=== PATIENT | female | born 1935 | race Caucasian/White ===

== ENCOUNTER 2024-01-12 16:35 | Observation (INO) | payer MEDICARE, MEDICAID, SELFPAY ==
[2024-01-12] VITALS (8 sets, daily range): BP systolic 126–165; BP diastolic 66–92; PULSE 68–82; RESP 14–18; TEMP 36.2–36.6; O2SAT 93–96; BMI 32.3; BMI 32.4
--- NOTE | 2024-01-12 17:42 | EKG12_ITS ---
Test Reason : Blood Pressure : / mmHG Vent. Rate : 071 BPM Atrial Rate : 071 BPM P-R Int : 224 ms QRS Dur : 082 ms QT Int : 402 ms P-R-T Axes : 068 046 006 degrees QTc Int : 436 ms Atrial-paced rhythm with prolonged AV conduction Nonspecific T wave abnormality Abnormal ECG Confirmed by Isaac Espinal ([id number]), advertising editor FARIDA DOUGHERTY ([id number]) on 01/14/2024 2:06:38 PM Referred By: Confirmed By:Isaac Espinal
--- NOTE | 2024-01-12 17:43 | CT_ITS ---
STUDY: CT ABDOMEN AND PELVIS WITHOUT CONTRAST REASON FOR EXAM: Female, 88 years old. Pain RADIATION DOSAGE (If Supplied By Facility): CTDIvol = ( 14.79 ) mGy, DLP = ( 679.78 ) mGycm TECHNIQUE: Transaxial images were obtained from the dome of the diaphragm to the symphysis pubis without oral contrast, and without intravenous contrast. Sagittal and coronal images were reconstructed. Individualized dose optimization techniques were used for this CT. COMPARISON: None. FINDINGS: 4 mm noncalcified nodule in the right lower lobe lungs on image 19 and follow-up CT the chest is recommended in 12 months document stability. Cardiomegaly. Normal liver. The gallbladder is contracted. Normal spleen. Normal pancreas. Normal bilateral adrenal glands. Nonrotated right kidney which is a normal variant. Normal left kidney. Normal visualized stomach. Normal small intestine. There are multiple colonic diverticula consistent with diverticulosis. There is non-visualization of the appendix. There is diffuse atherosclerotic calcification of the abdominal aorta, without a demonstrated aneurysm. Normal inferior vena cava. Normal retroperitoneum. Normal urinary bladder. There is a small umbilical hernia containing fat. There are diffuse degenerative changes of the visualized lumbar spine. CT/Abdomen/Pelvis without Cont IMPRESSION: 1. 4 mm noncalcified right lower lobe nodule and follow-up CT is recommended in 12 months document stability. 2. Cardiomegaly. 3. No renal or ureteral stone. 4. Sigmoid diverticulosis without diverticulitis. Electronically Signed: Raul Delgadillo MD at 20:32 EDT ,
--- NOTE | 2024-01-12 18:37 | EDS_ITS ---
HPI HPI - GI History of Present Illness Chief Complaint: Diarrhea Informant: patient Narrative Narrative: Patient is an 88-year-old female with history of hypertension, atrial fibrillation (on Coumadin), sick sinus syndrome status post pacemaker placement, GERD and possibly remote history of C. difficile presenting for chills and diarrhea. She states she had been feeling constipated until she started having diarrhea 2 days ago. She states she has had at least 4 episodes of diarrhea today. She has been having alternating chills and feeling hot. She has diffuse cramping abdominal pain. She also notes her rectum is burning. She has nausea but no vomiting reported. Denies any recent antibiotics, sick contacts or eating any suspicious foods. Denies associated chest pain or difficulty breathing. Came in for further evaluation. Notes that she did take Pepto- Bismol yesterday and since then her stools have been darker. Denies any rj black or blood in her stool however. [facility] Medical History Abdominal aortic aneurysm (AAA) without rupture Anxiety Appetite loss Arthritis Atherosclerotic heart disease of [place] coronary artery without angina pectoris (01/23/21) Atrial fibrillation Bone spur of left foot Chronic pain Closed head injury COPD (chronic obstructive pulmonary disease) COPD with acute exacerbation Coronary artery disease CVA (cerebral vascular accident) Dementia Depression Depression Dizziness Dysarthria due to acute cerebellar cerebrovascular accident (CVA) Edema Essential hypertension Expressive aphasia Fall Former smoker Frequent UTI ELVIN (generalized anxiety disorder) Gastroesophageal reflux disease GERD (gastroesophageal reflux disease) Goiter History of left heart catheterization (LHC) (~01/23/21) History of pacemaker History of TIAs Hyperlipidemia Hypertension Hypertension Hypertrophic cardiomyopathy Hypokalemia Insomnia Mixed hyperlipidemia Muscle spasm Pacemaker Paroxysmal atrial fibrillation Paroxysmal supraventricular tachycardia Presence of cardiac pacemaker Presence of permanent cardiac pacemaker (~11/22/13) SSS (sick sinus syndrome) Stroke Thyroid disorder Vascular dementia, uncomplicated Vitamin D deficiency Vitamin D deficiency Home Medications ergocalciferol (vitamin D2) 1,250 mcg (50,000 unit) capsule 50,000 unit PO DC SUPPLEMENT 06/23/19 [History Last Taken 06/20/23] metoprolol succinate 100 mg tablet,extended release 24 hr 100 mg PO BID blood pressure 06/23/19 [History Last Taken 06/22/23] omeprazole 40 mg capsule,delayed release 40 mg PO DAILY GERD 06/23/19 [History Last Taken 06/25/23 08:25] mirtazapine 30 mg tablet 30 mg PO QHS MOOD 01/21/21 [History Last Taken ] rosuvastatin 10 mg tablet 10 mg PO MOTH CHOLESTEROL 01/21/21 [History Last Taken 06/24/23] cyclobenzaprine 10 mg tablet 10 mg PO BID PRN Muscle Spasm 09/22/21 [History Last Taken 06/24/23 16:25] dicyclomine 20 mg tablet 20 mg PO BID PRN irritable bowels 04/27/22 [History Last Taken 05/11/22] fluticasone propionate 250 mcg/actuation blister powder for inhalation (Flovent Diskus) 1 inh inhalation BID PRN shortness of breath 05/04/22 [History Last Taken 06/24/23 17:30] nitroglycerin 0.4 mg sublingual tablet 0.4 mg sublingual Q5-15M PRN chest pain #25 tabs 04/16/23 [Rx Last Taken Unknown] hydralazine 50 mg tablet 50 mg PO TID blood pressure 06/22/23 [History Last Taken 06/22/23] zolpidem 10 mg tablet 10 mg PO DAILY INSOMNIA 2 days #2 tabs 06/25/23 [Rx Last Taken 06/24/23] spironolactone 25 mg tablet 25 mg PO DAILY #90 tabs 07/12/23 [Rx Last Taken Unknown] gabapentin 100 mg capsule 100 mg PO TID 09/18/23 [History Last Taken Unknown] alprazolam 0.5 mg tablet 0.5 mg PO BID #10 tabs 09/21/23 [Rx Last Taken Unknown] warfarin 6 mg tablet (Jantoven) 6 mg PO DINNER #0 tabs 09/21/23 [Rx Last Taken Unknown] acetaminophen 325 mg tablet 650 mg PO TID Pain 1-10 Or Fever 01/12/24 [History Last Taken Unknown] tramadol 50 mg tablet 50 mg PO Q12H PRN pain 01/12/24 [History Last Taken Unknown] Allergy/AdvReac Type Severity Reaction Status Date / Time amlodipine [From Norvasc] Allergy Unknown Verified 01/12/24 16:37 azithromycin [From Zithromax] Allergy Swelling Verified 01/12/24 16:37 candesartan Allergy Unknown Verified 01/12/24 16:37 [From Atacand HCT] ciprofloxacin Allergy Unknown Verified 01/12/24 16:37 codeine Allergy Unknown Verified 01/12/24 16:37 ezetimibe [From Zetia] Allergy Pain in Verified 01/12/24 16:37 joints hydrochlorothiazide Allergy Unknown Verified 01/12/24 16:37 Iodinated Contrast Media Allergy Hives Verified 01/12/24 16:37 [CONTRASTS] nitrofurantoin Allergy Rash Verified 01/12/24 16:37 [From Macrodantin] Penicillins [PCN] Allergy Hives Verified 01/12/24 16:37 procaine [From Novocain] Allergy Other Verified 01/12/24 16:37 ramipril [From Altace] Allergy Unknown Verified 01/12/24 16:37 [id number] Reductase Allergy Other Verified 01/12/24 16:37 Inhibitor [Zsiwuev-Dwx-Erz Reductase Inhibitor] Sulfa (Sulfonamide Allergy Unknown Verified 01/12/24 16:37 Antibiotics) Family History Aunt Diabetes Aunt Tuberculosis Brother CAD (coronary artery disease) Brother Cancer Prostate Surgical History H/O shoulder surgery H/O: hysterectomy History of appendectomy History of arthroplasty of right knee History of bilateral cataract extraction History of bladder suspension procedure History of hemorrhoidectomy History of lumpectomy of left breast History of permanent cardiac pacemaker placement History of tonsillectomy Status post left foot surgery Social History household members: family Smoking Status: Former smoker alcohol intake: never substance use type: does not use caffeine: Yes Type: coffee Number of servings: 1 ROS ROS ED Constitutional Constitutional ED: Reports chills and sweats; Denies fever(s) ENT ENT ED: Denies sore throat Cardiovascular Cardiovascular: Denies chest pain Respiratory/Chest Respiratory/Chest: Denies cough or dyspnea Gastrointestinal Gastrointestinal: Reports abdominal pain, diarrhea and nausea; Denies melena or vomiting Genitourinary Genitourinary ED: Denies dysuria or urinary frequency Musculoskeletal Musculoskeletal: Denies arthralgias or myalgias Integumentary Denies rash Neurologic Neurologic: Reports weakness; Denies headache(s) Hematologic/Lymphatic Hematologic/Lymphatic: Reports easy bleeding and easy bruising EXAM Physical Exam Const Vital Signs: 01/12/24 16:35 01/12/24 16:37 01/12/24 19:28 Temperature 97.1 F L Temperature Source Temporal Pulse Rate 82 73 Respiratory Rate 14 18 Blood Pressure 164/92 H 165/73 H Blood Pressure Mean 116 103 Pulse Ox 96 93 Oxygen Delivery Method Room Air 01/12/24 21:02 01/12/24 22:12 Temperature 98 F Temperature Source Pulse Rate 78 68 Respiratory Rate 16 14 Blood Pressure 126/74 H 152/78 H Blood Pressure Mean 91 102 Pulse Ox 93 94 Oxygen Delivery Method Room Air Positive well nourished and well developed General Appearance ED: well developed and NAD; Negative for pallor HEENT Reports dry mucous membranes normocephalic and atraumatic Mouth ED: Yes dry mucous membranes Mouth: dry mucous membranes Eyes PERRL General Eye ED: Negative for pale conjunctiva or scleral icterus Neck supple Resp normal respiratory effort and clear to auscultation bilaterally Cardio regular rate, regular rhythm and no murmurs GI non-distended Auscultation: hypoactive bowel sounds Palpation: soft and tender other (diffuse, mild ); Negative for guarding or rigid Extremity full ROM General Extremety ED: Negative for edema General Extremity: Negative for edema Neuro Sensorium / Orientation: alert, oriented to person, oriented to place and oriented to time Motor Exam: general weakness Psych mental status grossly normal and thought process normal Skin no wounds General Skin Exam: Negative for jaundice or pallor MDM MDM MDM Narrative Medical decision making narrative: Patient is evaluated for diarrhea that started yesterday. She also associated nausea, diffuse cramping abdominal pain and generalized weakness. Does have remote history of C. difficile. Differential includes colitis, gastroenteritis, norovirus, diverticulitis and C. difficile infection. Lab work including CBC, CMP, lactate and urinalysis is obtained. Stool studies were also ordered. Given the patient's age I did obtain an EKG to make sure this is not some type of referred cardiac pain. In addition CT of the abdomen and pelvis is ordered. Patient is given IV fluids, Zofran and fentanyl for symptom control in the ER. On repeat evaluation she is feeling much better. Attempted to ambulate her however she is very weak and cannot even take a step or 2 without starting to fall. Her workup was largely negative however with a normal CBC, CMP, no findings consistent with acute dehydration, creatinine is at baseline and urinalysis is not consistent with infection. CT abdomen pelvis does not show any acute process to explain her symptoms. Possibly could have a some type of gastroenteritis however we do have a stool sample at this time to test however it is ordered and pending. Patient will require admission because she is so weak. Will continue IV fluids and discussed evaluation PT/OT. Case discussed admitting physician, Dr. Bland. Patient's INR is mildly subtherapeutic. Given normal lactate low suspicion for an acute embolic event in the abdomen causing her symptoms. She does not have pain at proportion on abdominal exam. Lab Data Attestation: I reviewed the patient's lab results. Labs: Laboratory Results - last 24 hr 01/12/24 01/12/24 18:45 19:05 WBC 7.8 RBC 4.90 Hgb 12.2 Hct 40.0 MCV 81.6 MCH 24.9 L MCHC 30.5 L RDW Std Deviation 48.9 H RDW Coeff of Nigel 16.5 H Plt Count 276 MPV 9.6 Immature Gran % (Auto) 0.300 Neut % (Auto) 72.4 H Lymph % (Auto) 17.8 L [place] % (Auto) 8.3 Eos % (Auto) 0.6 Baso % (Auto) 0.6 Absolute Neuts (auto) 5.7 Absolute Lymphs (auto) 1.39 Nucleated RBC % 0 PT 21.6 H INR 1.9 Sodium 142 Potassium 3.8 Chloride 106 Carbon Dioxide 30.0 Anion Gap 6 BUN 15 Creatinine 1.16 H Estim Creat Clear Calc 36.06 Est GFR (MDRD) Af Amer 57 L Est GFR (MDRD) Non-Af 47 L BUN/Creatinine Ratio 12.9 Glucose 114 H Lactic Acid 1.3 Calcium 8.3 L Total Bilirubin 0.30 AST 20 ALT 19 Alkaline Phosphatase 78 Total Protein 7.1 Albumin 3.7 Globulin 3.4 Albumin/Globulin Ratio 1.1 Urine Color Yellow Urine Clarity Clear Urine pH 6.5 Ur Specific [place] 1.010 Urine Protein Negative Urine Glucose (UA) Normal Urine Ketones Negative Urine Occult Blood Negative Urine Nitrite Negative Urine Bilirubin Negative Urine Urobilinogen Normal Ur Leukocyte Esterase Negative Urine RBC 0 SEEN Urine WBC 0 SEEN Ur Squamous Epith Cells 0-5 SEEN Urine Bacteria 0 SEEN Urine Mucus 0 SEEN Radiography Diagnostic Testing: Clinical Impression(s) from Imaging Studies Abdomen/Pelvis CT 01/12/24 17:43 IMPRESSION: 1. 4 mm noncalcified right lower lobe nodule and follow-up CT is recommended in 12 months document stability. 2. Cardiomegaly. 3. No renal or ureteral stone. 4. Sigmoid diverticulosis without diverticulitis. Electronically Signed: Raul Delgadillo MD at 20:32 EDT , Rhythm Strip Rhythm Strip: Paced Rate: 71 Ectopy: None EKG Initial EKG: Attestation: I personally reviewed and interpreted this EKG as follows: Interpretation: Paced Comments: Atrial paced rhythm with prolonged AV conduction at a rate of 71 bpm Normal axis Nonspecific T wave inversion and 3, aVF and flattening in V4 through V6 leads Compared to prior EKG patient does not have any acute changes. Per some prior EKGs do show atrial ventricular pacing however the ones that show atrial alone pacing I do have some subtle T wave changes as noted above Management Discussion w/another healthcare provider: Hospitalist Discharge Plan Dx/Rx/DC Orders Clinical Impression: Acute diarrhea, Unable to ambulate Disposition Disposition: Acute Care Hospital [facility] Discharge Date/Time: 01/12/24 22:58
[2024-01-12] MEDS: Ondansetron 4 MG/2 ML Vial IV (18:54)
[2024-01-12] MEDS: 0.9% Normal Saline (500mL Bag) 500 ML 999 ML IV (18:54)
[2024-01-12] MEDS: fentaNYL 100 MCG/2 ML Ampul 25 MCG IV (18:55)
[2024-01-12 19:00] LABS: Absolute Lymphocyte Count 1.39 X10^3/uL (0.83-4.51); Absolute Neutrophil Count 5.7 X10^3/uL (2.0-7.7); Basophil# 0.05 X10^3/uL; Basophil% 0.6 % (0-1); Eosinophil# 0.05 X10^3/uL; Eosinophils% 0.6 % (0-5); Hemoglobin 12.2 g/dL (12.0-15.0); Lymphocyte # 1.39 X10^3/ul (0.83-4.51); Lymphocyte % 17.8 % (19-41); Mean Corp Hgb Conc 30.5 g/dL (32-36); Mean Corpuscular Hgb 24.9 pg (27.0-32.0); Mean Corpuscular Volume 81.6 fL (81-99); Mean Platelet Vol. 9.6 fl (6.2-12.0); Monocyte# 0.65 X10^3/uL; Monocyte% 8.3 % (0-10); NRBC Flagged by Analyzer 0 % (0-5); Neutrophil # 5.66 X10^3/uL (2.7-7.7); Neutrophil % 72.4 % (47-70); Platelet Count 276 K/mm3 (150-450); RBC Distribution Width CV 16.5 % (11.6-14.6); RBC Distribution Width SD 48.9 fl (35.1-43.9); White Blood Count 7.8 K/mm3 (4.4-11.0)
[2024-01-12 19:10] LABS: International Normalized Ratio 1.9; Prothrombin Time (Protime)PT. 21.6 SECONDS (11.7-14.9)
[2024-01-12 19:14] LABS: Bacteria 0 SEEN /hpf (None Seen); Mucous, Urine 0 SEEN /hpf (<or=2+); Red Blood Cells-Urine 0 SEEN /hpf (0-5); White Blood Cells 0 SEEN /hpf (0-5)
[2024-01-12 19:17] LABS: Color, Urine Yellow (Yellow); Glucose, Dipstick Normal (Normal); Ketone-Dipstick Negative (Negative); Leukocyte Esterase-Dipstick Negative /ul (Negative); Nitrite-Dipstick Negative (Negative); Occult Blood-Urine Negative /ul (Negative); Protein-Dipstick Negative (Negative); Urine Bilirubin Dipstick Negative (Negative); Urine Clarity Clear (Clear); Urine Urobilinogen Normal (Normal); Urine pH 6.5 (5.0 - 8.0)
[2024-01-12 19:20] LABS: ALB/GLOB Ratio 1.1 RATIO (0.9-2.4); AST(SGOT) 20 U/L (15-37); Alanine Aminotransfer ALT/SGPT 19 U/L (13-56); Albumin, Serum 3.7 g/dL (3.2-5.0); Alkaline Phosphatase 78 U/L (45-117); Anion Gap 6 (5-15); BUN 15 mg/dL (7-18); BUN/Creat Ratio 12.9 RATIO (10-20); Calcium,Total 8.3 mg/dL (8.5-10.1); Chloride 106 mmol/L (98-107); Creatinine, Serum 1.16 mg/dL (0.55-1.02); EST Glomerular Filtration Rate 47 mL/min (>60); Est Glom Filt Rate - Afr Amer 57 mL/min (>60); Estimated Creatinine Clearance 36.06 ml/min; Globulin 3.4 g/dL (2.2-4.2); Glucose 114 mg/dL (74-106); Potassium 3.8 mmol/L (3.5-5.1); Protein, Total 7.1 g/dL (6.4-8.2); Sodium Level 142 mmol/L (136-145)
[2024-01-12 19:25] LABS: Lactic Acid 1.3 mmol/L (0.4-1.9)
[2024-01-12 19:29] LABS: Squamous Epithelial Cells - UA 0-5 SEEN /hpf (5-10)
--- NOTE | 2024-01-12 21:49 | HP.PCM.HOS_ITS ---
[facility] - General General Date of Admission: 01/12/24 Date of Service: 01/12/24 Chief Complaint: Diarrhea, Chills and Generalized Weakness. HPI Narrative LYUBOV PABLO, is a 88 F with a past medical history of essential hypertension, hyperlipidemia, history of goiter; status post removal, obesity; with BMI of 32.4 this admission, history of tobacco abuse; with subsequent COPD, paroxysmal atrial fibrillation; on Coumadin, SSS; s/p PPM, hypertrophic cardiomyopathy, history of AAA; without rupture, history of TIA/CVA, chronic dementia, depression with anxiety, IBS; on prn Dicyclomine, GERD, osteoarthritis and remote history of Clostridium difficile Colitis who presents to [facility] ER complaining of diarrhea, chills and generalized weakness. Ms. Pablo reports her symptoms began approximately 1 day prior to admission with the abrupt onset of initially feeling constipated followed by diarrhea. She admits to having 4 liquid bowel movements today along with alternating subjective fever and chills. She describes the abdominal pain as diffuse and cramping with a burning sensation in her rectum. She also admits to nausea but denies vomiting, recent antibiotics, sick contacts or suspicious food. She does admit to taking Pepto-Bismol yesterday and since then her stools have been darker but she denies any rj blood or black stools. In the ER she was noted to have a CT scan of the abdomen and pelvis that revealed sigmoid diverticulosis without diverticulitis or signs of colitis with the ER physician suspecting possible viral infection due to norovirus (but with no stools available to send for testing at this time) complicated by clinical evidence of generalized weakness with ambulatory dysfunction and she was then admitted to the general medical floor under observation status for ongoing care for stay that is expected to be less than 48 hours. [facility] Medical History Abdominal aortic aneurysm (AAA) without rupture Anxiety Appetite loss Arthritis Atherosclerotic heart disease of [place] coronary artery without angina pectoris (01/23/21) Atrial fibrillation Bone spur of left foot Chronic pain Closed head injury COPD (chronic obstructive pulmonary disease) COPD with acute exacerbation Coronary artery disease CVA (cerebral vascular accident) Dementia Depression Depression Dizziness Dysarthria due to acute cerebellar cerebrovascular accident (CVA) Edema Essential hypertension Expressive aphasia Fall Former smoker Frequent UTI ELVIN (generalized anxiety disorder) Gastroesophageal reflux disease GERD (gastroesophageal reflux disease) Goiter History of left heart catheterization (LHC) (~01/23/21) History of pacemaker History of TIAs Hyperlipidemia Hypertension Hypertension Hypertrophic cardiomyopathy Hypokalemia Insomnia Mixed hyperlipidemia Muscle spasm Pacemaker Paroxysmal atrial fibrillation Paroxysmal supraventricular tachycardia Presence of cardiac pacemaker Presence of permanent cardiac pacemaker (~11/22/13) SSS (sick sinus syndrome) Stroke Thyroid disorder Vascular dementia, uncomplicated Vitamin D deficiency Vitamin D deficiency Home Medications ergocalciferol (vitamin D2) 1,250 mcg (50,000 unit) capsule 50,000 unit PO DC SUPPLEMENT 06/23/19 [History Last Taken 06/20/23] metoprolol succinate 100 mg tablet,extended release 24 hr 100 mg PO BID blood pressure 06/23/19 [History Last Taken 06/22/23] omeprazole 40 mg capsule,delayed release 40 mg PO DAILY GERD 06/23/19 [History Last Taken 06/25/23 08:25] mirtazapine 30 mg tablet 30 mg PO QHS MOOD 01/21/21 [History Last Taken 06/21/23] rosuvastatin 10 mg tablet 10 mg PO MOTH CHOLESTEROL 01/21/21 [History Last Taken 06/24/23] cyclobenzaprine 10 mg tablet 10 mg PO BID PRN Muscle Spasm 09/22/21 [History Last Taken 06/24/23 16:25] dicyclomine 20 mg tablet 20 mg PO BID PRN irritable bowels 04/27/22 [History Last Taken 05/11/22] fluticasone propionate 250 mcg/actuation blister powder for inhalation (Flovent Diskus) 1 inh inhalation BID PRN shortness of breath 05/04/22 [History Last Taken 06/24/23 17:30] nitroglycerin 0.4 mg sublingual tablet 0.4 mg sublingual Q5-15M PRN chest pain #25 tabs 04/16/23 [Rx Last Taken Unknown] hydralazine 50 mg tablet 50 mg PO TID blood pressure 06/22/23 [History Last Taken 06/22/23] zolpidem 10 mg tablet 10 mg PO DAILY INSOMNIA 2 days #2 tabs 06/25/23 [Rx Last Taken 06/24/23] spironolactone 25 mg tablet 25 mg PO DAILY #90 tabs 07/12/23 [Rx Last Taken Unknown] gabapentin 100 mg capsule 100 mg PO TID 09/18/23 [History Last Taken Unknown] alprazolam 0.5 mg tablet 0.5 mg PO BID #10 tabs 09/21/23 [Rx Last Taken Unknown] warfarin 6 mg tablet (Jantoven) 6 mg PO DINNER #0 tabs 09/21/23 [Rx Last Taken Unknown] acetaminophen 325 mg tablet 650 mg PO TID Pain 1-10 Or Fever 01/12/24 [History Last Taken Unknown] tramadol 50 mg tablet 50 mg PO Q12H PRN pain 01/12/24 [History Last Taken Unknown] Allergy/AdvReac Type Severity Reaction Status Date / Time amlodipine [From Norvasc] Allergy Unknown Verified 01/12/24 16:37 azithromycin [From Zithromax] Allergy Swelling Verified 01/12/24 16:37 candesartan Allergy Unknown Verified 01/12/24 16:37 [From Atacand HCT] ciprofloxacin Allergy Unknown Verified 01/12/24 16:37 codeine Allergy Unknown Verified 01/12/24 16:37 ezetimibe [From Zetia] Allergy Pain in Verified 01/12/24 16:37 joints hydrochlorothiazide Allergy Unknown Verified 01/12/24 16:37 Iodinated Contrast Media Allergy Hives Verified 01/12/24 16:37 [CONTRASTS] nitrofurantoin Allergy Rash Verified 01/12/24 16:37 [From Macrodantin] Penicillins [PCN] Allergy Hives Verified 01/12/24 16:37 procaine [From Novocain] Allergy Other Verified 01/12/24 16:37 ramipril [From Altace] Allergy Unknown Verified 01/12/24 16:37 Qlxulsx-SHE-TaK Reductase Allergy Other Verified 01/12/24 16:37 Inhibitor [Ibqxfuy-Tyt-Kne Reductase Inhibitor] Sulfa (Sulfonamide Allergy Unknown Verified 01/12/24 16:37 Antibiotics) Family History Aunt Diabetes Aunt Tuberculosis Brother CAD (coronary artery disease) Brother Cancer Prostate Surgical History H/O shoulder surgery H/O: hysterectomy History of appendectomy History of arthroplasty of right knee History of bilateral cataract extraction History of bladder suspension procedure History of hemorrhoidectomy History of lumpectomy of left breast History of permanent cardiac pacemaker placement History of tonsillectomy Status post left foot surgery Social History household members: family Smoking Status: Former smoker alcohol intake: never substance use type: does not use caffeine: Yes Type: coffee Number of servings: 1 ROS ROS Narrative Review of systems: General: Patient admits to subjective fever and chills. HENT: Denies headache, denies stuffy nose, denies sore throat EYES: Denies changes in vision or discharge from eyes. Resp: Denies cough, denies shortness of breath Cardiac: Denies chest pain or palpitations. GI: Patient admits to generalized cramping abdominal pain as per HPI with diarrhea and burning per rectum. She denies vomiting or obvious blood in stools. : Denies changes in urination Extremity: Denies swelling Musculoskeletal: Feels somewhat generally weak and unwell with the patient unable to ambulate without assistance Neuro: Denies any numbness/tingling Heme: Denies any bleeding or bruising Skin: Denies rashes Psychiatric: No complaints voiced related to uncontrolled depression or anxiety Endocrine: No polyuria, polydipsia or polyphagia. The rest of the 14 point ROS was negative except for positives in HPI. Vital Signs Vital Signs Vital Signs: 01/12/24 16:35 01/12/24 16:37 01/12/24 19:28 Temperature 97.1 F L Temperature Source Temporal Pulse Rate 82 73 Respiratory Rate 14 18 Blood Pressure 164/92 H 165/73 H Blood Pressure Mean 116 103 Pulse Ox 96 93 Oxygen Delivery Method Room Air 01/12/24 21:02 Temperature Temperature Source Pulse Rate 78 Respiratory Rate 16 Blood Pressure 126/74 H Blood Pressure Mean 91 Pulse Ox 93 Oxygen Delivery Method Room Air Weight Weight: 194 lb 6.458 oz Body Mass Index (BMI) 32.3 Physical Exam Const alert, oriented x3 and no apparent distress General Appearance: cooperative HEENT normocephalic, head/scalp atraumatic and hearing grossly normal bilaterally HEENT Narrative: Mucous membranes dry. Eyes PERRL and EOMs intact bilaterally Neck no lymphadenopathy and supple Resp normal respiratory effort, no retractions, no use of accessory muscles and clear to auscultation bilaterally Cardio regular rate and regular rhythm GI normal to inspection, nondistended, normoactive bowel sounds, soft to palpation and non-distended GI Narrative: Mild generalized tenderness to palpation. Auscultation: hypoactive bowel sounds Extremity normal to inspection, full ROM and no clubbing, cyanosis or edema Skin Skin Narrative: Patient has no evidence of rash at this time. Neuro oriented x3, CN's II-XII intact bilaterally, moves all extremities and no focal motor deficits Neuro Narrative: Patient is generally weak and cannot ambulate without assistance but can move all 4 extremities to command with no obvious focal neurologic deficits. Sensorium / Orientation: awake, alert, oriented to person, oriented to place and oriented to time Speech: speech normal Psych affect normal Results Medical Records Data Attestation: I reviewed the patient's medical records Lab / Micro Data Attestation: I reviewed the patient's lab results. 01/12/24 18:45 01/12/24 18:45 Labs: Laboratory Results - last 24 hr 01/12/24 18:45: WBC 7.8, RBC 4.90, Hgb 12.2, Hct 40.0, MCV 81.6, MCH 24.9 L, MCHC 30.5 L, RDW Std Deviation 48.9 H, RDW Coeff of [place] 16.5 H, Plt Count 276, MPV 9.6, Immature Gran % (Auto) 0.300, Neut % (Auto) 72.4 H, Lymph % (Auto) 17.8 L, [place] % (Auto) 8.3, Eos % (Auto) 0.6, Baso % (Auto) 0.6, Absolute Neuts (auto) 5.7, Absolute Lymphs (auto) 1.39, Nucleated RBC % 0, PT 21.6 H, INR 1.9, Sodium 142, Potassium 3.8, Chloride 106, Carbon Dioxide 30.0, Anion Gap 6, BUN 15, Creatinine 1.16 H, Estim Creat Clear Calc 36.06, Est GFR (MDRD) Af Amer 57 L, Est GFR (MDRD) Non-Af 47 L, BUN/Creatinine Ratio 12.9, Glucose 114 H, Lactic Acid 1.3, Calcium 8.3 L, Total Bilirubin 0.30, AST 20, ALT 19, Alkaline Phosphatase 78, Total Protein 7.1, Albumin 3.7, Globulin 3.4, Albumin/Globulin Ratio 1.1 03/13/24 19:05: Urine Color Yellow, Urine Clarity Clear, Urine pH 6.5, Ur Specific [place] 1.010, Urine Protein Negative, Urine Glucose (UA) Normal, Urine Ketones Negative, Urine Occult Blood Negative, Urine Nitrite Negative, Urine Bilirubin Negative, Urine Urobilinogen Normal, Ur Leukocyte Esterase Negative, Urine RBC 0 SEEN, Urine WBC 0 SEEN, Ur Squamous Epith Cells 0-5 SEEN, Urine Bacteria 0 SEEN, Urine Mucus 0 SEEN Imaging Radiology Impression Abdomen/Pelvis CT 01/12/24 17:43 IMPRESSION: 1. 4 mm noncalcified right lower lobe nodule and follow-up CT is recommended in 12 months document stability. 2. Cardiomegaly. 3. No renal or ureteral stone. 4. Sigmoid diverticulosis without diverticulitis. Electronically Signed: Raul Delgadillo MD at 20:32 EDT , Assessment & Plan Assessment/Plan (1) Acute diarrhea: (2) Generalized weakness: (3) Unable to ambulate: PLAN: Plan 1. Suspected viral gastroenteritis possibly due to norovirus causing nonbloody diarrhea in the setting of a known history of irritable bowel syndrome on as needed dicyclomine plus a remote history of Clostridium difficile Colitis - Admit to general medical floor under observation status and enteric precautions. Continue supportive care with IV fluid and await stool studies to confirm suspicion of infectious etiology. Give Tylenol as needed pain or fever. Give IV Zofran as needed for nausea or vomiting. 2. Generalized weakness with ambulatory dysfunction due to #1 - We we will consult PT/OT and case management to see this patient on rounds in the a.m. for further recommendations with help appreciated in advance. 3. Paroxysmal atrial fibrillation; on Coumadin with INR of 1.9 present on admission - Stable. Continue Coumadin and check daily PT/INR. 4. Essential hypertension - Hold scheduled antihypertensives until GI symptoms have resolved. Give as needed IV hydralazine for systolic blood pressure g reater than 160 mmHg. 5. Hyperlipidemia - Resume statin. 6. History of goiter; status post removal - Noted. 7. Obesity; with BMI of 32.4 this admission - Weight loss will be recommended. Check TSH. 8. History of tobacco abuse; with subsequent COPD - Stable and without evidence of flare at this time. Continue as needed nebulizers. 9. SSS; s/p PPM - Stable. 10. Hypertrophic cardiomyopathy - Stable. 11. History of AAA; without rupture - Stable on above CT this admission. 12. History of TIA/CVA - Noted. 13. Chronic dementia - Stable. 14. Depression with anxiety - Continue home regimen as previous. 15. GERD - Resume PPI iV. 16. Osteoarthritis - Stable. 17. DVT prophylaxis - Patient already on Coumadin for #3 which will be continued. Check daily PT/INR. Total time: Approximately 45 minutes. Charges/Coding Visit Charges OBSV E&M: 09737 Observ/hosp same date L1
[2024-01-12] MEDS: Gabapentin 100 MG Capsule PO (23:26)
[2024-01-12] MEDS: Lactated Ringers 1,000 ML 75 ML IV (23:26)
[2024-01-12] MEDS: ALPRAZolam 0.5 MG Tablet PO (23:27)
[2024-01-12] MEDS: Mirtazapine 30 MG Tablet PO (23:27)
[2024-01-12] MEDS: Zolpidem Tartrate 5 MG Tablet PO (23:27)
[2024-01-12] MEDS: Pantoprazole Sodium 40 MG in 0.9% Normal Saline (100mL MB+) 100 ML 330 MG IV (23:27)
[2024-01-12] MEDS: Metoprolol(XL)Succ 100 MG Tablet PO (23:27)
[2024-01-12] MEDS: 0.9% Saline Lock 10 ML Syringe IV (23:27)
[2024-01-12] MEDS: Acetaminophen 325 MG Tablet 650 MG PO (23:28)
[2024-01-12] MEDS: Menthol/Lanolin/Calamine/Znox 113 GM Tube 1 APPLIC TOPICAL (23:37)
[2024-01-13] VITALS (8 sets, daily range): BP systolic 115–155; BP diastolic 54–84; PULSE 64–82; RESP 16–20; TEMP 36.6–36.9; O2SAT 92–94
[2024-01-13] MEDS: Gabapentin 100 MG Capsule PO ×3 (05:33→21:25)
[2024-01-13] MEDS: Budesonide Respules 0.5 MG/2 ML AMPUL.NEB. INHALATION ×2 (07:37→19:27)
[2024-01-13 08:16] LABS: Absolute Lymphocyte Count 1.91 X10^3/uL (0.83-4.51); Absolute Neutrophil Count 2.3 X10^3/uL (2.0-7.7); Basophil# 0.03 X10^3/uL; Basophil% 0.6 % (0-1); Eosinophil# 0.14 X10^3/uL; Eosinophils% 2.8 % (0-5); Hemoglobin 10.8 g/dL (12.0-15.0); Lymphocyte # 1.91 X10^3/ul (0.83-4.51); Lymphocyte % 38.8 % (19-41); Mean Corpuscular Hgb 24.7 pg (27.0-32.0); Mean Corpuscular Volume 82.4 fL (81-99); Mean Platelet Vol. 9.5 fl (6.2-12.0); Monocyte# 0.52 X10^3/uL; Monocyte% 10.6 % (0-10); NRBC Flagged by Analyzer 0 % (0-5); Neutrophil # 2.31 X10^3/uL (2.7-7.7); Platelet Count 250 K/mm3 (150-450); RBC Distribution Width CV 16.5 % (11.6-14.6); RBC Distribution Width SD 49.8 fl (35.1-43.9); Red Blood Count 4.37 M/mm3 (4.2-5.4); White Blood Count 4.9 K/mm3 (4.4-11.0)
[2024-01-13] MEDS: traMADol 50 MG Tablet PO (09:29)
[2024-01-13] MEDS: ALPRAZolam 0.5 MG Tablet PO ×2 (09:30→21:24)
[2024-01-13] MEDS: Metoprolol(XL)Succ 100 MG Tablet PO ×2 (09:30→21:24)
[2024-01-13] MEDS: Menthol/Lanolin/Calamine/Znox 113 GM Tube 1 APPLIC TOPICAL ×2 (09:33→21:25)
[2024-01-13 10:03] LABS: AST(SGOT) 16 U/L (15-37); Alanine Aminotransfer ALT/SGPT 13 U/L (13-56); Albumin, Serum 2.8 g/dL (3.2-5.0); Alkaline Phosphatase 52 U/L (45-117); Anion Gap 7 (5-15); BUN 11 mg/dL (7-18); BUN/Creat Ratio 11.4 RATIO (10-20); Calcium,Total 7.7 mg/dL (8.5-10.1); Chloride 112 mmol/L (98-107); Creatinine, Serum 0.96 mg/dL (0.55-1.02); EST Glomerular Filtration Rate 58 mL/min (>60); Est Glom Filt Rate - Afr Amer 70 mL/min (>60); Estimated Creatinine Clearance 43.63 ml/min; Globulin 2.7 g/dL (2.2-4.2); Glucose 84 mg/dL (74-106); Phosphorus 3.3 mg/dL (2.5-4.9); Potassium 3.5 mmol/L (3.5-5.1); Protein, Total 5.5 g/dL (6.4-8.2); Sodium Level 145 mmol/L (136-145); Thyroid Stim Hormone (TSH) 0.76 uIU/mL (0.358-3.74)
[2024-01-13] MEDS: Pantoprazole Sodium 40 MG in 0.9% Normal Saline (100mL MB+) 100 ML 330 MG IV (10:36)
--- NOTE | 2024-01-13 14:06 | PN_ITS ---
Subjective Subjective Patient seen and examined. She had no actve complaints. Her diarrhea is improving. Review of systems is otherwise negative. Objective Data Objective Data Vital Signs: Vital Signs Temp Pulse Resp BP Pulse Ox O2 Del Method 97.8 F 79 18 155/84 H 93 Room Air 01/13/24 09:13 01/13/24 09:30 01/13/24 09:13 01/13/24 09:13 01/13/24 09:13 01/13/24 09:16 Oxygen Delivery Method Room Air Weight: 194 lb 14.218 oz Body Mass Index (BMI) 32.4 Intake & Output: Intake and Output for Last 24 Hours 01/11/24 01/12/24 01/13/24 23:59 23:59 23:59 Intake Total 611.25 / 611.25 1158.75 / 1158.75 Balance 611.25 / 611.25 1158.75 / 1158.75 Lab / Micro Data 01/13/24 07:47 01/13/24 07:47 Labs: Laboratory Results - last 24 hr 01/12/24 18:45: WBC 7.8, RBC 4.90, Hgb 12.2, Hct 40.0, MCV 81.6, MCH 24.9 L, MCHC 30.5 L, RDW Std Deviation 48.9 H, RDW Coeff of [place] 16.5 H, Plt Count 276, MPV 9.6, Immature Gran % (Auto) 0.300, Neut % (Auto) 72.4 H, Lymph % (Auto) 17.8 L, [place] % (Auto) 8.3, Eos % (Auto) 0.6, Baso % (Auto) 0.6, Absolute Neuts (auto) 5.7, Absolute Lymphs (auto) 1.39, Nucleated RBC % 0, PT 21.6 H, INR 1.9, Sodium 142, Potassium 3.8, Chloride 106, Carbon Dioxide 30.0, Anion Gap 6, BUN 15, Creatinine 1.16 H, Estim Creat Clear Calc 36.06, Est GFR (MDRD) Af Amer 57 L, Est GFR (MDRD) Non-Af 47 L, BUN/Creatinine Ratio 12.9, Glucose 114 H, Lactic Acid 1.3, Calcium 8.3 L, Total Bilirubin 0.30, AST 20, ALT 19, Alkaline Phosphatase 78, Total Protein 7.1, Albumin 3.7, Globulin 3.4, Albumin/Globulin Ratio 1.1 01/12/24 19:05: Urine Color Yellow, Urine Clarity Clear, Urine pH 6.5, Ur Specific [place] 1.010, Urine Protein Negative, Urine Glucose (UA) Normal, Urine Ketones Negative, Urine Occult Blood Negative, Urine Nitrite Negative, Urine Bilirubin Negative, Urine Urobilinogen Normal, Ur Leukocyte Esterase Negative, Urine RBC 0 SEEN, Urine WBC 0 SEEN, Ur Squamous Epith Cells 0-5 SEEN, Urine Bacteria 0 SEEN, Urine Mucus 0 SEEN 01/13/24 07:47: WBC 4.9, RBC 4.37, Hgb 10.8 L, Hct 36.0 L, MCV 82.4, MCH 24.7 L, MCHC 30.0 L, RDW Std Deviation 49.8 H, RDW Coeff of [place]el 16.5 H, Plt Count 250, MPV 9.5, Immature Gran % (Auto) 0.200, Neut % (Auto) 47.0, Lymph % (Auto) 38.8, [place] % (Auto) 10.6 H, Eos % (Auto) 2.8, Baso % (Auto) 0.6, Absolute Neuts (auto) 2.3, Absolute Lymphs (auto) 1.91, Nucleated RBC % 0, Sodium 145, Potassium 3.5, Chloride 112 H, Carbon Dioxide 26.0, Anion Gap 7, BUN 11, Creatinine 0.96, Estim Creat Clear Calc 43.63, Est GFR (MDRD) Af Amer 70, Est GFR (MDRD) Non-Af 58 L, BUN/Creatinine Ratio 11.4, Glucose 84, Calcium 7.7 L, Phosphorus 3.3, Magnesium 2.0, Total Bilirubin 0.40, AST 16, ALT 13, Alkaline Phosphatase 52, Total Protein 5.5 L, Albumin 2.8 L, Globulin 2.7, Albumin/Globulin Ratio 1.0, TSH 0.76 Radiography Diagnostic Testing: Radiology Impression Abdomen/Pelvis CT 01/12/24 17:43 IMPRESSION: 1. 4 mm noncalcified right lower lobe nodule and follow-up CT is recommended in 12 months document stability. 2. Cardiomegaly. 3. No renal or ureteral stone. 4. Sigmoid diverticulosis without diverticulitis. Electronically Signed: Raul Delgadillo MD at 20:32 EDT , Rhythm Strip Rhythm Strip: Paced Rate: 71 Ectopy: None Physical Exam Const alert, oriented x3 and no apparent distress General Appearance: cooperative and well developed HEENT normocephalic and head/scalp atraumatic Mouth: dry mucous membranes Eyes PERRL and EOMs intact bilaterally Neck no lymphadenopathy, supple and no JVD Lymph Lymphatic: no lymphadenopathy noted and no lymphedema noted Resp normal respiratory effort, normal air movement and clear to auscultation bilaterally Cardio regular rate, regular rhythm, S1 normal heart sound, S2 normal heart sound and no murmurs GI normal to inspection, nondistended, normoactive bowel sounds, soft to palpation, non-tender and non-distended Extremity normal capillary refill, no clubbing, cyanosis or edema and no calf tenderness General Extremity: no tenderness to palpation of joints or extremities Skin General Skin Exam: no breakdown Neuro CN's II-XII intact bilaterally, no focal motor deficits, no sensory deficits noted and deep tendon reflexes 2+ bilaterally Motor Exam: strength 5/5 throughout and general weakness Psych thought process normal, cooperative and affect normal Appearance: appropriate Assessment & Plan Assessment/Plan (1) Acute diarrhea: (2) Debility: PLAN: Plan #Acute gastrenteritis * Suspected to be viral. Diarrhea has improved though and she has not had any more episodes since she was admitted. * Continue gentle hydration with IV fluids. If she tolerates a diet will advance as tolerated. * #Debility and weakness due to diarrhea: PT OT on board. Fall precautions #Paroxysmal afib: on coumadin. on metoprolol. Monitor INR. #Benign essential hypertension: Resume BP meds. On hydralazine and metoprolol as well as spironolactone. #Hyperlipidemia: On statin #History of hypertrophic cardiomyopathy: Stable #Dementia: Stable. #Depression with anxiety #GERD: On PPI Charges/Coding Visit Charges Inpatient E&M: 28484 Subs Hosp L2
[2024-01-13] MEDS: Acetaminophen 325 MG Tablet 650 MG PO (15:27)
--- NOTE | 2024-01-13 16:11 | CASEMGMT ---
Met with?patient to complete [place] form. [place] form explained to patient who voiced understanding and signed form. Original form placed in pt?s chart and copy provided to?patient. Marisol Jones, Discharge Planning Asst
[2024-01-13] MEDS: Zolpidem Tartrate 5 MG Tablet PO (21:23)
[2024-01-13] MEDS: hydrALAZINE 50 MG Tablet PO (21:24)
[2024-01-13] MEDS: Mirtazapine 30 MG Tablet PO (21:25)
[2024-01-13] MEDS: 0.9% Saline Lock 10 ML Syringe IV (21:28)
[2024-01-14] VITALS (7 sets, daily range): BP systolic 120–150; BP diastolic 56–67; PULSE 70–86; RESP 18; TEMP 36.3–36.5; O2SAT 92–95; BMI 33.3
[2024-01-14] MEDS: Gabapentin 100 MG Capsule PO (05:36)
[2024-01-14] MEDS: hydrALAZINE 50 MG Tablet PO (05:36)
[2024-01-14 06:33] LABS: Absolute Lymphocyte Count 1.87 X10^3/uL (0.83-4.51); Absolute Neutrophil Count 2.8 X10^3/uL (2.0-7.7); Basophil# 0.05 X10^3/uL; Basophil% 0.9 % (0-1); Eosinophils% 3.6 % (0-5); Hemoglobin 11.5 g/dL (12.0-15.0); Lymphocyte # 1.87 X10^3/ul (0.83-4.51); Lymphocyte % 33.5 % (19-41); Mean Corp Hgb Conc 30.3 g/dL (32-36); Mean Corpuscular Volume 82.6 fL (81-99); Mean Platelet Vol. 9.3 fl (6.2-12.0); Monocyte# 0.62 X10^3/uL; Monocyte% 11.1 % (0-10); NRBC Flagged by Analyzer 0 % (0-5); Neutrophil # 2.83 X10^3/uL (2.7-7.7); Neutrophil % 50.5 % (47-70); Platelet Count 242 K/mm3 (150-450); RBC Distribution Width CV 16.6 % (11.6-14.6); RBC Distribution Width SD 49.6 fl (35.1-43.9); White Blood Count 5.6 K/mm3 (4.4-11.0)
[2024-01-14 07:12] LABS: Anion Gap 2 (5-15); BUN 10 mg/dL (7-18); BUN/Creat Ratio 9.2 RATIO (10-20); Calcium,Total 8.2 mg/dL (8.5-10.1); Chloride 111 mmol/L (98-107); Creatinine, Serum 1.09 mg/dL (0.55-1.02); EST Glomerular Filtration Rate 50 mL/min (>60); Est Glom Filt Rate - Afr Amer 61 mL/min (>60); Estimated Creatinine Clearance 38.95 ml/min; Glucose 92 mg/dL (74-106); Potassium 4.1 mmol/L (3.5-5.1); Sodium Level 141 mmol/L (136-145)
[2024-01-14] MEDS: Budesonide Respules 0.5 MG/2 ML AMPUL.NEB. INHALATION (07:17)
--- NOTE | 2024-01-14 08:59 | CASEMGMT ---
Discharge Planning A list of?HH providers including quality and resource use data and consistent with the patient's preferred geographic region, medical needs, and insurance network was created in [employer] Guide.? This list was provided to the RN GRANT. Marisol Jones, Discharge Planning Asst.
[2024-01-14] MEDS: Spironolactone 25 MG Tablet PO (09:05)
[2024-01-14] MEDS: Pantoprazole Sodium 40 MG Tablet PO (09:05)
[2024-01-14] MEDS: ALPRAZolam 0.5 MG Tablet PO (09:06)
[2024-01-14] MEDS: Metoprolol(XL)Succ 100 MG Tablet PO (09:06)
[2024-01-14] MEDS: Menthol/Lanolin/Calamine/Znox 113 GM Tube 1 APPLIC TOPICAL (09:08)
--- NOTE | 2024-01-14 10:20 | CASEMGMT ---
ERIBERTO CM into pt room, noted therapy notes and pt may benefit from HHC. Pt sitting up in bed in no distress. Pt states she lives with her dtr in a ground level apt with 2-3 steps to enter. She states she has a walker and grab bar on her bed. Pt reports being I in ADL's. States her dtr prepares meals, she does her own laundry and they get groceries together. Pt does not drive, dtr provides transportation. Pt denies concerns at home. She denies the need for HHC at this time. She feels she is almost to her baseline. Provided pt with a list of HHC agencies provided by dc assistant manager quality management should she get home and change her mind. She is aware that if this is the case to contact her PCP. Pt denies any further needs.
--- NOTE | 2024-01-14 13:55 | DS.PCM_ITS ---
Providers Date of Admission: 01/12/24 Date of Discharge: 01/14/24 Primary Care Physician: Dr. Abhay Ortiz MD Reason For Visit: DIARRHEA DUE TO SUSPECTED GASTROENTERITIS Diagnosis Discharge Diagnosis (1) Acute diarrhea: Status: Acute Code(s): R19.7 - Diarrhea, unspecified (2) Debility: Status: Acute Code(s): R53.81 - Other malaise Plan #Acute gastrenteritis * Suspected to be viral. Diarrhea has improved though and she has not had any more episodes since she was admitted. * Continue gentle hydration with IV fluids. If she tolerates a diet will advance as tolerated. * #Debility and weakness due to diarrhea: PT OT on board. Fall precautions #Paroxysmal afib: on coumadin. on metoprolol. Monitor INR. #Benign essential hypertension: Resume BP meds. On hydralazine and metoprolol as well as spironolactone. #Hyperlipidemia: On statin #History of hypertrophic cardiomyopathy: Stable #Dementia: Stable. #Depression with anxiety #GERD: On PPI Medications at Discharge Home Medications ergocalciferol (vitamin D2) 1,250 mcg (50,000 unit) capsule 50,000 unit PO DC SUPPLEMENT 06/23/19 metoprolol succinate 100 mg tablet,extended release 24 hr 100 mg PO BID blood pressure 06/23/19 omeprazole 40 mg capsule,delayed release 40 mg PO DAILY GERD 06/23/19 mirtazapine 30 mg tablet 30 mg PO QHS MOOD 01/21/21 rosuvastatin 10 mg tablet 10 mg PO MOTH CHOLESTEROL 01/21/21 cyclobenzaprine 10 mg tablet 10 mg PO BID PRN Muscle Spasm 09/22/21 dicyclomine 20 mg tablet 20 mg PO BID PRN irritable bowels 04/27/22 fluticasone propionate 250 mcg/actuation blister powder for inhalation (Flovent Diskus) 1 inh inhalation BID PRN shortness of breath 05/04/22 nitroglycerin 0.4 mg sublingual tablet 0.4 mg sublingual Q5-15M PRN chest pain #25 tabs 04/16/23 hydralazine 50 mg tablet 50 mg PO TID blood pressure 06/22/23 zolpidem 10 mg tablet 10 mg PO DAILY INSOMNIA 2 days #2 tabs 06/25/23 spironolactone 25 mg tablet 25 mg PO DAILY #90 tabs 07/12/23 gabapentin 100 mg capsule 100 mg PO TID 09/18/23 alprazolam 0.5 mg tablet 0.5 mg PO BID #10 tabs 09/21/23 warfarin 6 mg tablet (Jantoven) 6 mg PO DINNER #0 tabs 09/21/23 acetaminophen 325 mg tablet 650 mg PO TID Pain 1-10 Or Fever 01/12/24 tramadol 50 mg tablet 50 mg PO Q12H PRN pain 01/12/24 cefdinir 300 mg capsule 300 mg PO BID #10 caps 01/14/24 Hospital Course Operations None Procedures None Summary of Care Provided Minutes Spent on Discharge: 42 Hospital Course: Patient is an 88-year-old female with an extensive past medical history as outlined was admitted through the ED on 01/12/2024 with a complaint of diarrhea, chills and generalized weakness. His symptoms have started a day before admission. She had initially felt constipated but subsequently started having diarrhea. She had about 4 episodes of diarrhea daily with subjective fever and chills. Abdominal pain was diffuse and cramping. CT of the abdomen and pelvis showed sigmoid diverticulosis without diverticulitis or evidence of colitis. She was admitted and managed for debility and weakness due to diarrhea. Low suspicion for viral gastroenteritis. She was hydrated with IV fluids. Stool panel was ordered but patient did not have any more diarrheal episodes throughout the admission. She remained stable and her symptoms resolved. She did complain of burning with urination so she was placed on p.o. cefdinir. Given that her urinalysis showed no evidence of UTI, she was treated because of her symptomatic complaints. She was discharged home on 01/14/2024 on p.o. cefdinir 300 mg twice daily for 5 days. She is to follow-up with her PCP within 1 to 2 weeks. Patient seen and examined prior to discharge. He has no complaints and had an uneventful night. Review of systems is otherwise negative. Labs and vitals reviewed and home meds reviewed and reconciled. Physical Exam Const alert, oriented x3 and no apparent distress General Appearance: cooperative, comfortable, well kempt and well developed HEENT normocephalic, head/scalp atraumatic and hearing grossly normal bilaterally Eyes PERRL and EOMs intact bilaterally Neck no lymphadenopathy, supple and no JVD Lymph Lymphatic: no lymphadenopathy noted and no lymphedema noted Resp normal respiratory effort, normal air movement, no retractions, no use of accessory muscles and clear to auscultation bilaterally Cardio regular rate, regular rhythm, S1 normal heart sound, S2 normal heart sound and no murmurs GI normal to inspection, nondistended, normoactive bowel sounds, soft to palpation, non-tender and non-distended GI Narrative: Mild generalized tenderness to palpation. Auscultation: hypoactive bowel sounds Extremity normal to inspection, full ROM, normal capillary refill, no clubbing, cyanosis or edema and no calf tenderness General Extremity: no tenderness to palpation of joints or extremities Skin no rashes or lesions noted General Skin Exam: no breakdown Neuro oriented x3, CN's II-XII intact bilaterally, moves all extremities, no focal motor deficits, no sensory deficits noted and deep tendon reflexes 2+ bilaterally Sensorium / Orientation: awake, alert, oriented to person, oriented to place and oriented to time Speech: speech normal Motor Exam: strength 5/5 throughout and general weakness Psych thought process normal, cooperative and affect normal Appearance: appropriate Weight / BMI Weight Weight: 200 lb 1.6 oz Body Mass Index (BMI) 33.3 ABG / Lab / Microbiology Data 01/14/24 06:20 01/14/24 06:20 Laboratory: Laboratory Results - last 24 hr 01/14/24 06:20: WBC 5.6, RBC 4.60, Hgb 11.5 L, Hct 38.0, MCV 82.6, MCH 25.0 L, MCHC 30.3 L, RDW Std Deviation 49.6 H, RDW Coeff of Nigel 16.6 H, Plt Count 242, MPV 9.3, Immature Gran % (Auto) 0.400, Neut % (Auto) 50.5, Lymph % (Auto) 33.5, [place] % (Auto) 11.1 H, Eos % (Auto) 3.6, Baso % (Auto) 0.9, Absolute Neuts (auto) 2.8, Absolute Lymphs (auto) 1.87, Nucleated RBC % 0, Sodium 141, Potassium 4.1, Chloride 111 H, Carbon Dioxide 28.0, Anion Gap 2 L, BUN 10, Creatinine 1.09 H, Estim Creat Clear Calc 38.95, Est GFR (MDRD) Af Amer 61, Est GFR (MDRD) Non-Af 50 L, BUN/Creatinine Ratio 9.2 L, Glucose 92, Calcium 8.2 L D/C Instructions Discharge Diet: Low fat / Low cholesterol Discharge Activity: Return to Normal Activity Weight Bearing Status: Weight bearing as tolerated Call your doctor if you observe: Fever of 101 or Higher, Shortness of breath, Dizziness, Swelling in the ankles and Chest pain Meaningful Use Info Meaningful Use Diagnoses (Choose all that apply): None applicable Discharge Plan Admission Admit Date/Time: 01/12/24 22:18 Primary Reason for Your Visit: gastroenteritis Attending Provider: Jessica Adorno Primary Care Provider: Abhay Ortiz Consulting Providers: Neftali Huynh Instructions Patient Instructions: ED Gastroenteritis Ch Discharge Orders/Prescriptions Prescriptions: New cefdinir 300 mg capsule 300 mg PO BID Qty: 10 0RF Continued dicyclomine 20 mg tablet 20 mg PO BID PRN (Reason: irritable bowels) spironolactone 25 mg tablet 25 mg PO DAILY Qty: 90 3RF omeprazole 40 MG capsule,delayed release(DR/EC) 40 mg PO DAILY ergocalciferol (vitamin D2) 50,000 UNIT capsule 50,000 unit PO DC metoprolol succinate 100 MG tablet extended release 24 hr 100 mg PO BID rosuvastatin 10 MG tablet 10 mg PO MOTH mirtazapine 30 MG tablet 30 mg PO QHS cyclobenzaprine 10 mg tablet 10 mg PO BID PRN (Reason: Muscle Spasm) Patient Comments: take 1 tablet by mouth twice a day if needed for muscle spasm fluticasone propionate [Flovent Diskus] 250 mcg/actuation Blister With Device 1 inh INHALATION BID PRN (Reason: shortness of breath) gabapentin 100 mg capsule 100 mg PO TID Patient Comments: take 1 capsule by mouth twice a day alprazolam 0.5 mg Tablet 0.5 mg PO BID Qty: 10 0RF warfarin [Jantoven] 6 mg Tablet 6 mg PO DINNER Qty: 0 0RF hydralazine 50 mg tablet 50 mg PO TID zolpidem 10 mg tablet 10 mg PO DAILY 2 Days Qty: 2 0RF tramadol 50 mg tablet 50 mg PO Q12H PRN (Reason: pain) acetaminophen 325 mg Tablet 650 mg PO TID nitroglycerin 0.4 mg tablet, sublingual 0.4 mg sublingual Q5-15M PRN (Reason: chest pain) Qty: 25 3RF Rx Instructions: do not exceed 3 doses per episode Referrals / Follow Up: Abhay Ortiz MD [Primary Care Provider] - 01/20/24 9:00 am Disposition Disposition (needs filled in before D/C Order can be placed): Home, Self Care Charges/Coding Visit Charges Inpatient E&M: 24902 Disch Hosp >30min
== END 2024-01-14 14:21 | disposition home or self-care (01) ==
LOC: ED 17:31 → MS3 22:44
PROVIDERS: Admitting Provider Internal Medicine; Emergency Provider Emergency Medicine; PCP Family Medicine; Visit Provider Student in an Organized Health Care Education/Training Program
DX: K52.9 Noninfective gastroenteritis and colitis, unspecified (principal); F03.90 Unspecified dementia, unspecified severity, without behavioral disturbance, psychotic disturbance, mood disturbance, and anxiety; J44.9 Chronic obstructive pulmonary disease, unspecified; I42.2 Other hypertrophic cardiomyopathy; I48.0 Paroxysmal atrial fibrillation; R53.1 Weakness; R30.9 Painful micturition, unspecified; Z87.891 Personal history of nicotine dependence; I10 Essential (primary) hypertension; Z79.51 Long term (current) use of inhaled steroids; E78.2 Mixed hyperlipidemia; I25.10 Atherosclerotic heart disease of native coronary artery without angina pectoris; F41.1 Generalized anxiety disorder; K57.30 Diverticulosis of large intestine without perforation or abscess without bleeding; K21.9 Gastro-esophageal reflux disease without esophagitis; I69.322 Dysarthria following cerebral infarction; R53.81 Other malaise; Z79.01 Long term (current) use of anticoagulants; Z95.0 Presence of cardiac pacemaker; Z79.899 Other long term (current) drug therapy; F32.A Depression, unspecified; M19.90 Unspecified osteoarthritis, unspecified site; E66.9 Obesity, unspecified; Z68.32 Body mass index [BMI] 32.0-32.9, adult
CPT/HCPCS: 36415; 74176; 80048; 80053; 81001; 83605; 83735; 84100; 84443; 85025; 85610; 93005; 94640; 94668; 96361; 96365; 96366; 96375; 97162; 97166; 97530; 97535; 99221; 99284; J7040; J7120; A4216; G0378; J2405